=== PATIENT | female | born 1965 | race American Indian/Alaskan Native ===

== ENCOUNTER 2018-08-06 13:09 | Day surgery (SDC) | payer MEDICAID, SELFPAY ==
[2018-08-06] VITALS (14 sets, daily range): BP systolic 108–127; BP diastolic 57–85; PULSE 67–97; RESP 10–18; TEMP 36.3–37.1; O2SAT 93–99; BMI 20.6
--- NOTE | 2018-08-06 | PATH_ITS ---
[facility] Accession Number: [id number] . 01 Material submitted: . UTERUS AND CERVIX . 02 Diagnosis: Uterus and Cervix, Total Vaginal Hysterctomy (Weight 29 grams): Cervix with focally parakeratotic squamous mucosa, consistent with clinical indication of prolapse. Inflamed endocervix, negative for glandular dysplasia and malignancy. Weakly proliferative endometrium; negative for glandular hyperplasia, cytologic atypia, and malignancy. Myometrium with no diagnostic abnormality. Uterine serosa with no diagnostic abnormality. [facility]/08/09/2018 . 02 Electronically signed: . Windy Weaver MD, Pathologist NPI- [id number] . 01 Gross description: . The specimen is received in formalin, labeled with the patient's name, uterus and cervix, and is a 29-gram uterus and cervix without adnexa. The uterus has the following measurements: It is 6.5 cm superior to inferior, 3.2 cm from left to right, and 2.5 cm anterior to posterior. The serosa is bianchi-murcia, smooth, and does not have any adhesions on it. The ectocervix is bianchi-white, lobulated, glistening and contains a 1.2 cm in greatest dimension irregularly shaped os. The uterus is bivalved to reveal a bianchi glistening endocervical canal without the usual folds. The endometrium is lined by red-pink glistening mucosa, which averages 0.1 cm in thickness. The myometrium is bianchi-white, moderately trabeculated and averages 1.2 cm in thickness. No endomyometrial lesions are present. No cervical or endocervical lesions are present. Business Segment Manager sections are submitted as follows: A1 - anterior cervix; A2 - anterior endomyometrium; A3 - posterior cervix; A4 - posterior endomyometrium. ([id number]) /MRV . 02 Pathologist provided ICD-10: N81.4 . 02 CPT . 176982 Performed at: 01 [facility] [address] [id number] MD Julio Wilkerson MD Phone: [phone] Performed at: 02 [facility] [address] [place], [place] [id number] MD Jennifer Sellers MD Phone: [phone]
--- NOTE | 2018-08-06 14:35 | PM.PREOP ---
Pre-operative Note Interval Note Pre-op Check: Yes History & Physical Reviewed by Physician and Yes Exam Performed Changes: No H&P completed within 30 days and has changed as indicated here:: see 07/07 out patient note
[2018-08-06] MEDS: LACTATED RINGERS 1,000 ML 100 ML IV ×2 (14:59→18:56)
[2018-08-06] MEDS: CEFAZOLIN 2 GM/100 ML FROZ.PIGGY IV (15:28)
--- NOTE | 2018-08-06 16:08 | SUR.OPER ---
Lithotomy on padded OR bed, head on pillow, arms secured on padded arm boards at <90 degrees abduction. Legs secured in padded yellow fins stirrups.
[2018-08-06] MEDS: BUPIVACAINE 0.5% W/ EPI (PF) VIAL 30 ML INJ (16:15)
[2018-08-06] MEDS: HYDROMORPHONE 2 MG INJ 0.5 MG IV ×4 (17:30→17:52)
--- NOTE | 2018-08-06 17:32 | P.OP_ITS ---
Operative Date/Time/Diagnoses Date of procedure: 08/06/18 Time of procedure: 17:29 Pre-op diagnosis: Partial uterovaginal prolapse Post-op diagnosis: same Procedure & Clinicians Procedure: Total vaginal hysterectomy, anterior and posterior repair, sacrospinous ligament fixation. 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 Closure Type: primary Specimen(s): other (Uterus) Applied: catheter and other (Vaginal packing) Estimated Blood Loss (mL): 100 Blood products transfused: none Procedure in detail: Patient was brought to the operating room where she was placed in yellowfin stirrups and prepped and draped in the usual sterile fashion. A 20 point check system was reviewed prior to the beginning of the case. Pulsatile stockings were in place and functional throughout the case. Warming was in place. 2 g of Ancef were in prior to beginning of the case. A Watson catheter was placed. A single-tooth tenaculum was placed on the posterior lip of the cervix and a colpotomy incision was made. The peritoneum was sutured to the posterior vaginal wall. The uterosacral ligaments were clamped cut and ligated with 0 Vicryl suture which was used throughout the rest the case unless otherwise indicated. Bites were taken of the cardinal ligament and cut and ligated. A scalpel was used to circumscribe the cervix and the bladder pushed superiorly. The bladder pillars were clamped cut and ligated. Keeping the bladder pushed superiorly sequential bites were taken of the cardinal and broad ligaments. Anterior colpotomy incision was made and the bladder held away from the uterus. The rest of the attachments of the uterus including the broad ligament and the utero-ovarian ligaments were clamped and ligated. The uterus was removed intact. Adequate hemostasis was noted. A dilute solution of 1% lidocaine with epinephrine was injected over this cystocele. An incision was made over the cystocele and the incision dissected laterally. A pursestring suture was used to decrease the caliber of the cystocele with 2-0 Vicryl suture. Plicating sutures were made over the cystocele. A small amount of the vaginal excessive tissue was removed with scissors. The incision was closed with 2-0 Vicryl suture. The vaginal cuff was closed with [id number] sutures of 0 Vicryl suture. Next a wedge shaped tissue was taken out of the posterior vaginal opening. The area over the rectocele was injected with a dilute solution of 1% lidocaine with epinephrine. An incision was made over the rectocele and enterocele with the scalpel. The dissection was undertaken laterally. Prolene suture with the Capio passer was placed through the uterosacral ligament on the right side and sutured to the underside of the vaginal cuff. 0 Vicryl suture was used to plicate over the rectocele. A finger was placed in the rectum to be sure there were no sutures placed through the rectal mucosa. The uterosacral sutures were tightened down and the vaginal incision was closed with 2-0 Vicryl suture. The perineal body was built up with interrupted 0 Vicryl sutures. The skin was closed with the 2-0 Vicryl suture. Vaginal packing was placed in the vagina and the Watson left in place. Counts of instruments and sponges were correct. The patient went to recovery room in good condition. Complications: none Condition: stable Disposition: observation Plan for aftercare: Removed vaginal packing and Watson an a.m. home after postvoid residual
[2018-08-06] MEDS: LORazepam 2 MG/ML SYRINGE 0.25 MG IV (17:57)
--- NOTE | 2018-08-06 18:15 | SUR.PHASEI ---
Report called to Johnny
--- NOTE | 2018-08-06 18:33 | SUR.PHASEI ---
Pt transferred to the floor. Report to Johnny. VS stable. Moderate amt of clear, pink fluid to sascha-pad. Vaginal packing in place. IV saline locked. Upper denture, glasses/case and belongings bag with patient.
--- NOTE | 2018-08-06 18:56 | PC.NURSE ---
Patient up to floor around 1830. Patient is A&OX4, denies tingling or numbness anywhere, RA at 95%, denies nausea, SOB, or dizziness. Heart rate is regular, lung sounds are clear, bowel tones hypoactive. Watson is draining to gravity, urine yellow and clear. Patient is sitting up and eating solid foods without nausea. IVF infusing as ordered. Patient verbalizes compliance with use of call light. BA active. Will continue to monitor.
[2018-08-06] MEDS: KETOROLAC 30 MG/ML VIAL IV (19:48)
[2018-08-06] MEDS: GABAPENTIN 100 MG CAPSULE PO (20:29)
[2018-08-06] MEDS: DOCUSATE 250 MG CAPSULE PO (20:29)
[2018-08-06] MEDS: NICOTINE 7 MG PATCH TOP (22:16)
[2018-08-06] MEDS: OXYCODONE/ACETAMINOPHEN 5/325 TABLET 2 TAB PO (22:18)
--- NOTE | 2018-08-07 00:27 | PC.NURSE ---
assistant shift supervisor 0000: Assumed care of pt with safe hand off. Safety checks done. Pt a/ox4. Reports 5/10 pain in lower abdomen. This is tolerable at the time. Informed pt of next pain medication time. Taylor pad is c/d/i, recently replaced.
[2018-08-07 04:30] VITALS: BP 114/66; PULSE 95; RESP 17; TEMP 36.8; O2SAT 95
[2018-08-07] MEDS: KETOROLAC 30 MG/ML VIAL IV (04:38)
[2018-08-07 05:57] LABS: Add Manual Diff / Slide Review NO; Basophils Percent Auto 0.3 % (0-2); Hematocrit 39.4 % (36-46); Hemoglobin 13.2 g/dL (12.0-16.0); Mean Corpuscular HGB Conc 33.4 % (30-36); Mean Corpuscular Hemoglobin 30.1 PG (26-34); Monocytes Percent Auto 5.1 % (3-14); Neutrophils Absolute Auto 15400 /uL (1500-7000); Neutrophils Percent Auto 86.6 % (50-75); Platelet Count 260 X10^3/uL (150-400); Red Blood Cell Count 4.38 X10^6/uL (4.0-5.2); Red Cell Distribution Width 12.6 % (11.6-14.8); White Blood Cell Count 17.9 X10^3/uL (4.5-11.0)
[2018-08-07] MEDS: CALCIUM CARBONATE 500 MG TAB PO (06:26)
[2018-08-07] MEDS: OXYCODONE/ACETAMINOPHEN 5/325 TABLET 2 TAB PO ×2 (07:53→12:24)
[2018-08-07 08:00] VITALS: BP 111/69; PULSE 107; RESP 18; TEMP 36.6; O2SAT 93
--- NOTE | 2018-08-07 08:14 | PC.NURSE ---
Upon bedside shift report this morning at approx. 0715, pt was found to be crying and had c/o sub sternal chest pain 9/10 with nausea. She denied diaphoresis or pain radiating to left arm, neck or jaw. Pt reported further that the pain felt like a burning sensation. She had been previously medicated with one tablet of tums. Call was placed and message left with Dr. King. STAT EKG ordered with pts hx of current smoking. Pt was medicated with 2 tablets of Percocet after EKG complete. She vomited a short time after. Message left with [facility] answering service for Dr. King.
--- NOTE | 2018-08-07 08:38 | PC.NURSE ---
Order recieved from Dr. King for PPI to treat heartburn to relieve this patients discomfort at 08
[2018-08-07] MEDS: PANTOPRAZOLE 40 MG VIAL IV (09:48)
--- NOTE | 2018-08-07 10:02 | PM.DS.1 ---
History of Present Illness Date Patient Seen: 08/07/18 Time Patient Seen: 10:03 Chief complaint: *OPB* [id number] Narrative: Patient with partial uterovaginal prolapse who underwent a total vaginal hysterectomy anterior and posterior repair with sacrospinous ligament fixation. Discharge Providers Primary care physician: Kike Horton MD Discharge provider: Suzi Lopez MD Discharge Date: 08/07/18 Summary Discharge Diagnosis: Partial uterovaginal prolapse Hospital Course: Patient underwent a total vaginal hysterectomy with anterior and posterior repair and sacrospinous ligament fixation for partial uterovaginal prolapse. Patient had an episode of severe chest pain that appears to have been from acid reflux otherwise she is doing well. She is tolerating a regular diet and urinated a post removal of Watson catheter. She is ambulatory. A patient's abdomen is soft with some appropriate tenderness. She has mild bleeding vaginally. Extremities without edema nontender. Status at Discharge Functional status at discharge: independent ambulation Overall status at discharge: patient is progressing back to baseline Time Spent with Patient Less than 30 minutes Exam Vital Signs (past 8 hours): - 08/07/18 04:30 Temperature 98.2 F Pulse Rate 95 H Respiratory Rate 17 Blood Pressure 114/66 Pulse Oximetry 95 Oxygen Delivery Method Room Air Oxygen Flow Rate 0 Objective Labs Result Diagrams: 08/07/18 05:45 Labs: Laboratory Results - last 24 hr 08/07/18 05:45 WBC 17.9 H RBC 4.38 Hgb 13.2 Hct 39.4 MCV 90.0 MCH 30.1 MCHC 33.4 RDW 12.6 Plt Count 260 Neut % (Auto) 86.6 H Lymph % (Auto) 8.0 L Bleckley % (Auto) 5.1 Eos % (Auto) 0.0 L Baso % (Auto) 0.3 Neut # (Auto) 41085 H Discharge Plan Discharge Plan Patient Disposition: Home Discharge Med Rec/Prescriptions Prescriptions: New oxycodone-acetaminophen 5-325 mg Tablet 2 tab PO Q4HR PRN (Reason: Pain, Severe (7-10)) Qty: 40 RF: 0 docusate sodium 250 mg Capsule 250 mg PO BID Qty: 20 RF: 0 omeprazole 40 mg capsule,delayed release(DR/EC) 40 mg PO DAILY Qty: 14 RF: 0 Continue gabapentin 100 MG capsule 100 mg PO QDAY Qty: 0 RF: 0 sumatriptan succinate 3 mg/0.5 mL pen injector 3 mg SUBCUT ONCE RF: 0 Discontinued hydrocodone-acetaminophen 5-325 mg tablet 1 tab PO Q6H PRN (Reason: Back Pain) RF: 0 Follow up/Referrals: Suzi Lopez MD [Physician] - 2 Weeks Kike Horton MD [Primary Care Provider] - Discharge Orders: Discharge (Order); Ordered 08/07/18 Ordered By: Suzi Lopez Provider Discharge Instructions Diet: Regular Activity: Nothing in vagina for 4 weeks do not lift over 20 lb Skin/Wound/Dressing Care Report to your healthcare provider any signs of infection, such as:: chills, fever and increased pain Visit Report/Discharge Packet Stand Alone Forms: Surgery Discharge Discharge Data Primary Care Provider: Kike Horton Attending Provider: Suzi Lopez
--- NOTE | 2018-08-07 10:05 | P.DS_ITS ---
History of Present Illness Date Patient Seen: 08/07/18 Time Patient Seen: 10:03 Chief complaint: *OPB* [id number] Narrative: Patient with partial uterovaginal prolapse who underwent a total vaginal hysterectomy anterior and posterior repair with sacrospinous ligament fixation. Discharge Providers Primary care physician: Kike Horton MD Discharge provider: Suzi Lopez MD Discharge Date: 08/07/18 Summary Discharge Diagnosis: Partial uterovaginal prolapse Hospital Course: Patient underwent a total vaginal hysterectomy with anterior and posterior repair and sacrospinous ligament fixation for partial uterovaginal prolapse. Patient had an episode of severe chest pain that appears to have been from acid reflux otherwise she is doing well. She is tolerating a regular diet and urinated a post removal of Watson catheter. She is ambulatory. A patient's abdomen is soft with some appropriate tenderness. She has mild bleeding vaginally. Extremities without edema nontender. Status at Discharge Functional status at discharge: independent ambulation Overall status at discharge: patient is progressing back to baseline Time Spent with Patient Less than 30 minutes Exam Vital Signs (past 8 hours): - 08/07/18 04:30 Temperature 98.2 F Pulse Rate 95 H Respiratory Rate 17 Blood Pressure 114/66 Pulse Oximetry 95 Oxygen Delivery Method Room Air Oxygen Flow Rate 0 Objective Labs Result Diagrams: 08/07/18 05:45 Labs: Laboratory Results - last 24 hr 08/07/18 05:45 WBC 17.9 H RBC 4.38 Hgb 13.2 Hct 39.4 MCV 90.0 MCH 30.1 MCHC 33.4 RDW 12.6 Plt Count 260 Neut % (Auto) 86.6 H Lymph % (Auto) 8.0 L Rains % (Auto) 5.1 Eos % (Auto) 0.0 L Baso % (Auto) 0.3 Neut # (Auto) 53894 H Discharge Plan Discharge Plan Patient Disposition: Home Discharge Med Rec/Prescriptions Prescriptions: New oxycodone-acetaminophen 5-325 mg Tablet 2 tab PO Q4HR PRN (Reason: Pain, Severe (7-10)) Qty: 40 RF: 0 docusate sodium 250 mg Capsule 250 mg PO BID Qty: 20 RF: 0 omeprazole 40 mg capsule,delayed release(DR/EC) 40 mg PO DAILY Qty: 14 RF: 0 Continue gabapentin 100 MG capsule 100 mg PO QDAY Qty: 0 RF: 0 sumatriptan succinate 3 mg/0.5 mL pen injector 3 mg SUBCUT ONCE RF: 0 Discontinued hydrocodone-acetaminophen 5-325 mg tablet 1 tab PO Q6H PRN (Reason: Back Pain) RF: 0 Follow up/Referrals: Suzi Lopez MD [Physician] - 2 Weeks Kike Horton MD [Primary Care Provider] - Discharge Orders: Discharge (Order); Ordered 08/07/18 Ordered By: Suzi Lopez Provider Discharge Instructions Diet: Regular Activity: Nothing in vagina for 4 weeks do not lift over 20 lb Skin/Wound/Dressing Care Report to your healthcare provider any signs of infection, such as:: chills, fever and increased pain Visit Report/Discharge Packet Stand Alone Forms: Surgery Discharge Discharge Data Primary Care Provider: Kike Horton Attending Provider: Suzi Lopez
--- NOTE | 2018-08-07 11:32 | CM.DANOTE ---
Patient is a 53 year old female who was admitted OUTPT with Bed on 08/06/18 for Total Hysterectomy. Pt has RONIT for insurance and her PCP is Dr. Kike Horton. EMR was reviewed. Per MD, pt tolerated procedure well and ambulating independently and able to void without castro and medically stable to d/c home today with no identified barriers to discharge. Pt resides at home with family in [place] and is Independent with ADL's at baseline. Family available to assist if needed. Plan: Patient to d/c home today likely via family POV and no SW needs at this time. VALERIA Marcial Discharge Planning/Care Management CM Discharge Assessment Start: 08/07/18 11:30 Freq: Status: Active Protocol: Document 08/07/18 11:30 BF (Rec: 08/07/18 11:32 BF [id number]) Discharge Planning Assessment Assigned Musical String Maker VALERIA Merritt Advance Directives? No History Provided By Patient Medical Record Has Patient been admitted in last 30 No days? Prior Living Arrangements House Household Members family Type of transporation used prior to Drives own vehicle admit Comment Lives at home with family and is Independent at baseline with ADL's Independent with ADL's Yes Is patient alert and oriented? Yes Caregiver for Another Yes: young teenager at home, elderly mother Barriers to Discharge No Discharge Plan Home Transportation Arrangement Family likely to provide transport at d/c Referrals Initiated None needed Review Status In Process Please Provide Date Initial DC 08/07/18 Assessment Was Performed Next Review Type Continued Stay Review Pre-Anesthesia Assessment Start: 07/14/18 11:09 Freq: Status: Active Protocol: Document 07/14/18 11:09 INDY (Rec: 07/14/18 11:15 INDY [id number]) Pre-Anesthesia Assessment Patient Information Reviewed Via Chart Review Primary Care Provider Anuj Horton Seen Specialist in Last 12 Months Yes Specialist Seen Cae Engineer Anesthesia Review Requested No Activities Aide No Smoking Status Current every day smoker Substance Use Type opiates Comment Chronic use Musculoskeletal Symptoms Back Pain Advance Directives? No
[2018-08-07] MEDS: DOCUSATE 250 MG CAPSULE PO (12:10)
== END 2018-08-07 12:30 | disposition home or self-care (01) ==
LOC: OR 13:12 → AC 13:12
PROVIDERS: PCP Family Medicine; Visit Provider Specialist
PROC: (CPT 58260; principal; 2018-08-06 14:30)
PROC: (CPT 58260; 2018-08-06 14:30)
DX: N81.2 Incomplete uterovaginal prolapse (principal); F17.210 Nicotine dependence, cigarettes, uncomplicated; A63.0 Anogenital (venereal) warts
CPT/HCPCS: 58260; 57260; 36415; 85025; 88305; 93005; C9113; J0690; J1100; J1170; J1885; J2060; J2405; J2704; J3010

== ENCOUNTER 2018-11-23 19:12 | Emergency (ER) | payer MEDICAID, SELFPAY ==
[2018-08-06 18:40] VITALS: BMI 20.6
[2018-11-23 19:14] VITALS: BP 146/103; PULSE 135; RESP 24; TEMP 37.1; O2SAT 97
--- NOTE | 2018-11-23 19:21 | ED_ITS ---
HPI - Headache General Chief Complaint: Headache Stated Complaint: MIGRAINE Time Seen by Provider: 11/23/18 19:21 Source: patient Mode of arrival: ambulatory Limitations: no limitations History of Present Illness HPI Narrative: The patient is migraine headaches. She had onset of left frontal headache yesterday with mild photophobia, no scotomata she also has neck pain, and pain with hip motion. she has no focal numbness or weakness. She has nausea with vomiting x2 since yesterday. She has no associated abdominal pain. She has no diarrhea. She has no recent illness. She has had no fever, or chills. she has no URI symptoms. She has no chest pain, cough or congestion. She has no urinary complaints. she takes gabapentin daily. She has as needed oxycodone and sumatriptan. The headache persists despite the utilization of the list of medications. Related Data Home Medications Medication Instructions Recorded Confirmed gabapentin 100 mg PO QDAY #0 08/04/16 09/06/18 sumatriptan 3 mg/0.5 mL 3 mg SUBCUT ONCE 05/25/18 09/06/18 subcutaneous pen injector Previous Rx's Medication Instructions Recorded docusate sodium 250 mg PO BID #20 cap 08/07/18 omeprazole 40 mg PO DAILY #14 cap 08/07/18 oxycodone-acetaminophen 2 tab PO Q4HR PRN #40 tab 08/07/18 Allergies Allergy/AdvReac Type Severity Reaction Status Date / Time No Known Drug Allergies Allergy Verified 09/06/18 10:49 Review of Systems Review of Systems ROS Unobtainable: All systems reviewed & are unremarkable except as noted in HPI and below Constitutional Denies chills, Denies fever(s), Reports headache(s), Denies lethargy and Denies weakness Eyes Denies diplopia, Denies loss of vision, Denies eye pain, Denies seeing flashes and Reports photophobia ENT Ears, Nose, Mouth, and Throat: Reports as per HPI, Denies dizziness, Reports headache(s), Reports neck pain, Denies sinus pain and Denies sore throat Cardiovascular Denies chest pain, Denies syncope, Denies irregular heart rhythm, Denies lightheadedness, Denies palpitations, Denies dyspnea and Denies dyspnea on exertion Respiratory Denies cough, Denies dyspnea, Denies dyspnea on exertion and Denies wheezing Gastrointestinal Gastrointestinal: Denies abdominal pain, Denies change in bowel habits, Denies diarrhea, Reports nausea and Reports vomiting Genitourinary Denies dysuria Musculoskeletal Denies back pain and Reports neck pain Integumentary/Breasts Denies rash Neurologic Denies confusion, Denies dizziness, Denies syncope, Reports headache(s), Denies loss of vision and Denies weakness Psychiatric Denies confusion Endocrine Denies palpitations Allergic/Immunologic Denies wheezing PFSH Medical History ASCUS with positive high risk HPV (Acute) Chronic back pain (Acute) Chronic narcotic use (Acute) Cystocele and rectocele with incomplete uterovaginal prolapse (Acute) History of migraine headaches (Acute) Postmenopausal (Acute) Surgical History History of colonoscopy (Acute) History of total vaginal hysterectomy (TVH) (Resolved ~08/06/18) Social History household members: family Smoking Status: Current every day smoker Social History household members: family Smoking Status: Current every day smoker Exam Initial Vital Signs Initial Vital Signs: Vital Signs Temperature 98.8 F 11/23/18 19:14 Pulse Rate 135 H 11/23/18 19:14 Respiratory Rate 24 11/23/18 19:14 Blood Pressure 146/103 H 11/23/18 19:14 Pulse Oximetry 97 11/23/18 19:14 Const General: cooperative and well developed Nutritional Appearance: well nourished Orientation: alert, awake, oriented x3 and not confused [facility] Head: normocephalic and atraumatic Nose: external nose normal Face and sinus: sinuses nontender and face symmetric Mouth: oral mucosae normal and moist mucous membranes Teeth and gingiva: dentition normal Throat: tonsils normal and uvula midline Eyes General: appearance normal, both eyes and all related structures Eyelids: eyelids normal Conjunctivae: conjunctivae normal Sclera: sclerae normal Pupils: PERRL EOM: EOM intact bilaterally Neck Neck: normal visual inspection, trachea midline, No lymphadenopathy and No JVD Resp Effort & Inspection: normal respiratory effort and able to speak in complete se ntences Auscultation: clear to auscultation bilaterally, no rales, no rhonchi and no wheezes Cardio Rate: regular rate Rhythm: regular rhythm Heart Sounds: no click, no gallops, no murmurs and no rubs Pulses: normal peripheral pulses GI Inspection: non-distended Palpation: soft, no hepatosplenomegaly, No guarding and No tender Auscultation: normal bowel sounds Back/Spine/Pelvis Back: No CVA tenderness Cervical Spine: cervical ROM normal Thoracic/Lumbar Spine: thoracic and lumbar spine normal to inspection Skin General: no rashes or lesions noted, No jaundice and No petechiae Neuro General: alert, oriented x3, gait normal and no focal motor deficits Speech: speech normal Sensory Exam: no sensory deficits noted Course Course Narrative: Her headache has resolved with the medications given. Orders Ordered: Discontinued Medications Diphenhydramine HCl (Benadryl) 50 mg IV NOW ONE Stop: 11/23/18 19:30 Last Admin: 11/23/18 19:36 Dose: 50 mg Sodium Chloride (Normal Saline 0.9%) 1,000 mls @ 1,000 mls/hr IV BOLUS ONE Stop: 11/23/18 20:27 Last Infusion: 11/23/18 20:39 Dose: 1,000 mls/hr Admin: 11/23/18 19:36 Dose: 1,000 mls/hr Ketorolac Tromethamine (Toradol) 30 mg IV NOW ONE Stop: 11/23/18 19:30 Last Admin: 11/23/18 19:36 Dose: 30 mg Metoclopramide HCl (Reglan) 10 mg IV NOW ONE Stop: 11/23/18 19:30 Last Admin: 11/23/18 19:35 Dose: 10 mg Vital Signs - 8 hr 11/23/18 19:14 11/23/18 19:48 11/23/18 20:57 Temperature 98.8 F 98.8 F Pulse Rate 135 H 135 H 78 Respiratory Rate 24 24 15 Blood Pressure 146/103 H 146/103 H Blood Pressure [Left Arm] 108/75 Pulse Oximetry 97 97 97 Discharge Plan Departure Patient Disposition: Home Clinical Impression: Migraine Qualifiers: Migraine type: unspecified Status migrainosus presence: with status migrainosus Intractability: not intractable Qualified Code(s): G43.901 - Migraine, unspecified, not intractable, with status migrainosus Discharge Date/Time: 11/23/18 21:01 Interventions: ED Discharge Assessment Last Done: 11/23/18 21:01 Instructions: DI for Migraine Activity Restrictions/Additional Instructions: Continue using your current medications as previously directed. Follow up with her doctor if you have frequent versions of these headaches. Return to ER as needed. Prescriptions: No Action gabapentin 100 MG capsule 100 mg PO QDAY Qty: 0 RF: 0 sumatriptan succinate 3 mg/0.5 mL pen injector 3 mg SUBCUT ONCE RF: 0 oxycodone-acetaminophen 5-325 mg Tablet 2 tab PO Q4HR PRN (Reason: Pain, Severe (7-10)) Qty: 40 RF: 0 docusate sodium 250 mg Capsule 250 mg PO BID Qty: 20 RF: 0 omeprazole 40 mg capsule,delayed release(DR/EC) 40 mg PO DAILY Qty: 14 RF: 0 Referrals: Kike Horton MD [Primary Care Provider] -
[2018-11-23] MEDS: METOCLOPRAMIDE 10 MG/2 ML INJ IV (19:35)
[2018-11-23] MEDS: diphenhydrAMINE 50 MG/ML VIAL IV (19:36)
[2018-11-23] MEDS: KETOROLAC 60 MG/2 ML VIAL 30 MG IV (19:36)
[2018-11-23] MEDS: SODIUM CHLORIDE 0.9% 1,000 ML 1000 ML IV (19:36)
[2018-11-23 19:48] VITALS: BP 146/103; PULSE 135; RESP 24; TEMP 37.1; O2SAT 97
[2018-11-23 20:57] VITALS: BP 108/75; PULSE 78; RESP 15; O2SAT 97
== END 2018-11-23 21:01 | disposition home or self-care (01) ==
PROVIDERS: Emergency Provider Emergency Medicine; PCP Family Medicine
DX: G43.901 Migraine, unspecified, not intractable, with status migrainosus (principal); H53.149 Visual discomfort, unspecified; R11.2 Nausea with vomiting, unspecified; M54.2 Cervicalgia
CPT/HCPCS: 36591; 96361; 96374; 96375; 99283; 99284; J1200; J1885; J2765

== ENCOUNTER 2019-06-24 11:53 | Emergency (ER) | payer MEDICAID, SELFPAY ==
[2018-08-06 18:40] VITALS: BMI 20.6
[2019-06-24 12:11] VITALS: BP 117/65; PULSE 74; RESP 18; TEMP 36.7; O2SAT 98
[2019-06-24] MEDS: TET,DIPH,PERTUSS(ACELL),VAC/PF 0.5 ML SYRINGE IM (12:24)
--- NOTE | 2019-06-24 12:49 | ED_ITS ---
HPI - Skin/Abscess/Foreign Bdy <AGUSTINA Dhaliwal - Last Filed: 06/24/19 15:52> General Chief complaint: Skin/Abscess/Foreign Body Stated complaint: cut the tip of her thumb off Time Seen by Provider: 06/24/19 12:18 Source: patient Mode of arrival: Ambulatory Limitations: no limitations History of Present Illness HPI narrative: The patient is a 54 year female nonsmoker who presents stating that she cut off the tip of her left thumb. She states she was cutting potatoes with a mandolin pealer. She does not or last tetanus was. She states she has full range of motion, is able to flex and extend her thumb. She states that she cannot stop the bleeding. Does not take any blood thinners. Related Data Home Medications Medication Instructions Recorded Confirmed gabapentin 100 mg PO QDAY #0 08/04/16 09/06/18 sumatriptan succinate 3 mg/0.5 mL 3 mg SUBCUT ONCE 05/25/18 09/06/18 subcutaneous pen injector Previous Rx's Medication Instructions Recorded docusate sodium 250 mg PO BID #20 cap 08/07/18 omeprazole 40 mg PO DAILY #14 cap 08/07/18 oxycodone-acetaminophen 2 tab PO Q4HR PRN #40 tab 08/07/18 Allergies Allergy/AdvReac Type Severity Reaction Status Date / Time No Known Drug Allergies Allergy Verified 09/06/18 10:49 Review of Systems <AGUSTINA Dhaliwal - Last Filed: 06/24/19 15:52> Review of Systems Narrative: GENERAL: Denies chills, fatigue, malaise, fever, sweats. HEENT: Denies sinus pain, ear pain, sore throat, difficulty swallowing, dizziness. RESPIRATORY: Denies dyspnea, cough, wheezing, hemoptysis, sputum. CARDIOVASCULAR: Denies chest pain, palpitations, orthopnea, edema, GASTROINTESTINAL: Denies nausea, vomiting, abdominal pain, diarrhea, constipation, melena. : Denies dysuria, frequency, incontinence, hematuria, urinary retention. MUSCULOSKELETAL: See HPI SKIN: See HPI NEUROLOGIC: Denies weakness, headache, numbness, change in speech, confusion, seizures, incoordination. PSYCHIATRIC: No concerning psychosocial issues. 12 point review of systems is negative except for those stated above Patient History <AGUSTINA Dhaliwal - Last Filed: 06/24/19 15:52> Medical History ASCUS with positive high risk HPV (Acute) Chronic back pain (Acute) Chronic narcotic use (Acute) Cystocele and rectocele with incomplete uterovaginal prolapse (Acute) History of migraine headaches (Acute) Postmenopausal (Acute) Surgical History History of colonoscopy (Acute) History of total vaginal hysterectomy (TVH) (Resolved ~08/06/18) Social History household members: family Smoking Status: Current some day smoker alcohol intake frequency: 0-2 drinks per day Substance Use Type: does not use and opiates Exam <AZUL Dhaliwal - Last Filed: 06/24/19 15:52> Narrative Exam Narrative: GENERAL: This is a well-nourished, well-developed patient, appears anxious HEAD: Atraumatic. Normocephalic. No temporal or scalp tenderness. EYES: Pupils equal round and reactive. Extraocular motions intact. No scleral icterus. No injection or drainage. ENT: Nose without bleeding, purulent drainage or septal hematoma. Throat without erythema, tonsillar hypertrophy or exudate. Uvula midline. Airway patent. NECK: Trachea midline. No JVD or lymphadenopathy. Supple, nontender, no meningeal signs. CARDIOVASCULAR: Regular rate and rhythm RESPIRATORY: No cough. No increased respiratory effort. No accessory muscle use. EXTREMITIES: Patient is able to flex and extend left 1st digit against resistance. See skin exam. NEURO: AOx3. SKIN:2 x 1 cm avulsion laceration noted to tip of left 1st digit, oozing blood. No obvious muscle or tendon involvement. Does involve the tip of the nail. No nail bed involvement. Initial Vital Signs Initial Vital Signs: Vital Signs Temperature 98.0 F 06/24/19 12:11 Pulse Rate 74 06/24/19 12:11 Respiratory Rate 18 06/24/19 12:11 Blood Pressure 117/65 06/24/19 12:11 Pulse Oximetry 98 06/24/19 12:11 <Harjinder Hebert DO - Last Filed: 06/25/19 09:21> Initial Vital Signs Initial Vital Signs: Vital Signs Temperature 98.0 F 06/24/19 12:11 Pulse Rate 74 06/24/19 12:11 Respiratory Rate 18 06/24/19 12:11 Blood Pressure 117/65 06/24/19 12:11 Pulse Oximetry 98 06/24/19 12:11 Course <AZUL Dhaliwal - Last Filed: 06/24/19 15:52> Orders Ordered: Discontinued Medications Diphtheria/Tetanus/Acell Pertussis (Adacel) 0.5 ml IM .ONCE ONE Stop: 06/24/19 12:18 Last Admin: 06/24/19 12:24 Dose: 0.5 ml Documented by: JOSE GUADALUPE Vital Signs Vital signs: Vital Signs - 8 hr 06/24/19 12:11 06/24/19 12:59 Temperature 98.0 F Pulse Rate 74 80 Respiratory Rate 18 16 Blood Pressure 117/65 122/78 Pulse Oximetry 98 99 <Harjinder Hebert DO - Last Filed: 06/25/19 09:21> Orders Ordered: Discontinued Medications Diphtheria/Tetanus/Acell Pertussis (Adacel) 0.5 ml IM .ONCE ONE Stop: 06/24/19 12:18 Last Admin: 06/24/19 12:24 Dose: 0.5 ml Documented by: JOSE GUADALUPE Vital Signs Vital signs: Vital Signs - 8 hr 06/24/19 12:11 06/24/19 12:59 Temperature 98.0 F Pulse Rate 74 80 Respiratory Rate 18 16 Blood Pressure 117/65 122/78 Pulse Oximetry 98 99 MDM - Skin/Abscess/Foreign Bdy <AZUL Dhaliwal - Last Filed: 06/24/19 15:52> MDM Narrative Medical decision making narrative: The patient is a 54-year-old female presents with the avulsion laceration to the tip of her finger. She does not know the date of her last tetanus, so her tetanus was updated. I discussed the pros and cons of an x-ray, to evaluate for possible open fracture. The patient declined an x-ray at this time, stating it is not necessary. Her wound was dressed by nursing with Surgicel and hemostasis was achieved. I discussed at length monitoring for signs and symptoms of infection such as redness pus and swelling. Encouraged her to follow up with primary care provider in a few days for re- evaluation. Patient has no questions or concerns upon discharge and states understanding of return precautions of any acute concerns as well as follow-up care. Patient did decline x-ray during stay. No questions or concerns upon discharge. Discharge Plan Departure Patient Disposition: Home Clinical Impression: Avulsion of finger Qualifiers: Encounter type: initial encounter Qualified Code(s): S61.209A - Unspecified open wound of unspecified finger without damage to nail, initial encounter Discharge Date/Time: 06/24/19 13:00 Instructions: DI for Avulsion Laceration (Not Requiring Sutures) Activity Restrictions/Additional Instructions: Today we updated your tetanus, and dressed your wound. We did not get an x-ray, as you are not concerned about a fracture. Please keep this in mind if you are concerned in the future. Please monitor for signs and symptoms of infection such as pus, extending redness and fever. Please follow up with primary care provider in a few days for an evaluation. Please come back to emergency department for any acute concerns. Prescriptions: No Action gabapentin 100 MG capsule 100 mg PO QDAY Qty: 0 RF: 0 sumatriptan succinate 3 mg/0.5 mL pen injector 3 mg SUBCUT ONCE RF: 0 oxycodone-acetaminophen 5-325 mg Tablet 2 tab PO Q4HR PRN (Reason: Pain, Severe (7-10)) Qty: 40 RF: 0 docusate sodium 250 mg Capsule 250 mg PO BID Qty: 20 RF: 0 omeprazole 40 mg capsule,delayed release(DR/EC) 40 mg PO DAILY Qty: 14 RF: 0 Referrals: Kike Horton MD [Primary Care Provider] -
[2019-06-24 12:59] VITALS: BP 122/78; PULSE 80; RESP 16; O2SAT 99
== END 2019-06-24 13:00 | disposition home or self-care (01) ==
PROVIDERS: Emergency Provider Nurse Practitioner Family; PCP Family Medicine
DX: S61.209A Unspecified open wound of unspecified finger without damage to nail, initial encounter (principal); W26.8XXA Contact with other sharp object(s), not elsewhere classified, initial encounter
CPT/HCPCS: 90471; 99282; 90715

== ENCOUNTER 2019-07-17 10:35 | Emergency (ER) | payer MEDICAID, SELFPAY ==
[2018-08-06 18:40] VITALS: BMI 20.6
--- NOTE | 2019-07-17 10:55 | DI.RAD.S_ITS ---
PROCEDURE: XR FOOT LT MIN 3V INDICATIONS: possible broken toe TECHNIQUE: 3 views of the foot were acquired. COMPARISON: [facility], , FOOT 3V LEFT, 08/04/2016, 20:25. FINDINGS: Bones: No displaced fractures or dislocations. No suspicious bony lesions. Soft tissues: No tibiotalar joint effusion. Achilles tendon appears normal. IMPRESSION: 1. No displaced fracture or dislocation. If clinical concern persists for a nondisplaced fracture, recommend a repeat study in 7-10 days. Dictated by: Julio Olivarez M.D. on 07/17/2019 at 10:13 Approved by: Julio Olivarez M.D. on 07/17/2019 at 10:20
--- NOTE | 2019-07-17 15:39 | ED_ITS ---
HPI - Extremity Injury (Lower) <DAVID Dhaliwal-BC - Last Filed: 07/17/19 15:45> General Chief Complaint: Extremity Injury, Lower Stated Complaint: states broke 2 toes Time Seen by Provider: 07/17/19 11:29 Source: patient Mode of arrival: Ambulatory Limitations: no limitations History of Present Illness HPI Narrative: The patient is a 54-year-old female current smoker with history of left toe fracture who presents with a chief complain suspect above fractures. She states that she got her foot stuck in a store tonight yesterday common pulled out. She states that after that she worked on her feet for the past 14 hours. She has not applied ice or taken any medications as needed. She is concerned as she has a history of toe fractures in her left 2nd and 3rd toes when she dropped something on it several years ago. She states she is having trouble wiggling her toes because of the swelling Related Data Home Medications Medication Instructions Recorded Confirmed gabapentin 100 mg PO QDAY #0 08/04/16 09/06/18 sumatriptan succinate 3 mg/0.5 mL 3 mg SUBCUT ONCE 05/25/18 09/06/18 subcutaneous pen injector Previous Rx's Medication Instructions Recorded docusate sodium 250 mg PO BID #20 cap 08/07/18 omeprazole 40 mg PO DAILY #14 cap 08/07/18 oxycodone-acetaminophen 2 tab PO Q4HR PRN #40 tab 08/07/18 Allergies Allergy/AdvReac Type Severity Reaction Status Date / Time No Known Drug Allergies Allergy Verified 09/06/18 10:49 Review of Systems <AZUL Dhaliwal - Last Filed: 07/17/19 15:45> Review of Systems Narrative: GENERAL: Denies chills, fatigue, malaise, fever, sweats. HEENT: Denies sinus pain, ear pain, sore throat, difficulty swallowing, dizziness. RESPIRATORY: Denies dyspnea, cough, wheezing, hemoptysis, sputum. CARDIOVASCULAR: Denies chest pain, palpitations, orthopnea, edema, GASTROINTESTINAL: Denies nausea, vomiting, abdominal pain, diarrhea, constipation, melena. : Denies dysuria, frequency, incontinence, hematuria, urinary retention. MUSCULOSKELETAL: See HPI SKIN: See HPI NEUROLOGIC: Denies weakness, headache, numbness, change in speech, confusion, seizures, incoordination. PSYCHIATRIC: No concerning psychosocial issues. 12 point review of systems is negative except for those stated above Patient History <AZUL Dhaliwal - Last Filed: 07/17/19 15:45> Medical History ASCUS with positive high risk HPV (Acute) Chronic back pain (Acute) Chronic narcotic use (Acute) Cystocele and rectocele with incomplete uterovaginal prolapse (Acute) History of migraine headaches (Acute) Postmenopausal (Acute) Surgical History History of colonoscopy (Acute) History of total vaginal hysterectomy (TVH) (Resolved ~08/06/18) Social History household members: family Smoking Status: Current some day smoker Smoking Status: Current some day smoker alcohol intake frequency: 0-2 drinks per day Substance Use Type: does not use and opiates Exam <AZUL Dhaliwal - Last Filed: 07/17/19 15:45> Narrative Exam Narrative: GENERAL: This is a well-nourished, well-developed patient, in no acute distress HEAD: Atraumatic. Normocephalic. No temporal or scalp tenderness. EYES: Pupils equal round and reactive. Extraocular motions intact. No scleral icterus. No injection or drainage. ENT: Nose without bleeding, purulent drainage or septal hematoma. Throat without erythema, tonsillar hypertrophy or exudate. Uvula midline. Airway patent. NECK: Trachea midline. No JVD or lymphadenopathy. Supple, nontender, no meningeal signs. CARDIOVASCULAR: Regular rate and rhythm EXTREMITIES: Decreased range of motion noted left toes. Capillary refill less than 2 seconds. Positive pedal pulses left foot. General pain to palpation left 2nd and 3rd toes. BACK: Nontender without deformity or crepitance. No flank tenderness. NEURO: AOx3. SKIN: No rash or erythema on visible skin. Slight ecchymosis noted on left 2nd and 3rd toes. Course <AZUL Dhaliwal - Last Filed: 07/17/19 15:45> Orders Ordered: ED Orders 07/17/19 10:55 XR foot LT min 3V Stat <Windy Pinto MD - Last Filed: 07/17/19 20:00> Orders Ordered: ED Orders 07/17/19 10:55 XR foot LT min 3V Stat MDM - Extremity Injury (Lower) <AZUL Dhaliwal - Last Filed: 07/17/19 15:45> Imaging Data Toe x-ray: Radiologist's impression: [address] [address] XRay Report Signed Patient: Blanca Oconnell MMR#: [id number] : 1965Acct:[id number] Age/Sex: 54 / FDate of Service: 07/17/19 Loc: ED Accession Number: [id number] Procedure: XR foot LT min 3V Ordering Provider: Windy Pinto MD PROCEDURE: XR FOOT LT MIN 3V INDICATIONS: possible broken toe TECHNIQUE: 3 views of the foot were acquired. COMPARISON: [facility], , FOOT 3V LEFT, 08/04/2016, 20:25. FINDINGS: Bones: No displaced fractures or dislocations. No suspicious bony lesions. Soft tissues: No tibiotalar joint effusion. Achilles tendon appears normal. IMPRESSION: 1. No displaced fracture or dislocation. If clinical concern persists for a nondisplaced fracture, recommend a repeat study in 7-10 days. Dictated by: Julio Olivarez M.D. on 07/17/2019 at 10:13 Approved by: Julio Olivarez M.D. on 07/17/2019 at 10:20 [facility] Narrative Medical decision making narrative: The patient is a 54-year-old female presents with a chief complaint of left toe pain after it was stuck in a door yesterday. X-ray showed no acute fracture. Discussed at length rest ice compression el evation as well as [id number] medications as needed and able. Discussed the possibility of occult fracture, soft tissue injury. Encourage PCP follow-up in the next 10 days or so specially if worsening or no improvement. Patient is neurovascularly intact throughout her stay in the emergency department. Discussed come back to the ER for any acute concerns. Patient has no questions or concerns upon discharge and states understanding of return precautions as well as follow-up care. Discharge Plan Departure Patient Disposition: Home Clinical Impression: Pain in toe of left foot Discharge Date/Time: 07/17/19 11:49 Instructions: How To Perform RICE (Rest, Ice, Compress, Elevate), DI for Toe Sprain, DI for Foot Pain Activity Restrictions/Additional Instructions: As I discussed, your x-ray shows no acute fracture. This does not rule out a soft tissue injury such as a ligament or tendon injury. It is important that you follow up with primary care provider, especially if worsening or no improvement. There can be fractures that did not show up on initial x-ray. Please use rest ice compression elevation as well as [id number] medications as needed and able. Please follow-up with primary care provider the next few days. Please come back to the emergency department for any acute concerns Prescriptions: No Action gabapentin 100 MG capsule 100 mg PO QDAY Qty: 0 RF: 0 sumatriptan succinate 3 mg/0.5 mL pen injector 3 mg SUBCUT ONCE RF: 0 oxycodone-acetaminophen 5-325 mg Tablet 2 tab PO Q4HR PRN (Reason: Pain, Severe (7-10)) Qty: 40 RF: 0 docusate sodium 250 mg Capsule 250 mg PO BID Qty: 20 RF: 0 omeprazole 40 mg capsule,delayed release(DR/EC) 40 mg PO DAILY Qty: 14 RF: 0 Referrals: Kike Horton MD [Primary Care Provider] -
== END 2019-07-17 11:49 | disposition home or self-care (01) ==
PROVIDERS: Emergency Provider Nurse Practitioner Family; PCP Family Medicine
DX: M79.675 Pain in left toe(s) (principal); W22.8XXA Striking against or struck by other objects, initial encounter
CPT/HCPCS: 73630; 99281; 99283

== ENCOUNTER 2019-09-13 22:12 | Emergency (ER) | payer MEDICAID, SELFPAY ==
[2018-08-06 18:40] VITALS: BMI 20.6
[2019-09-13 22:50] VITALS: BP 123/72; PULSE 72; RESP 15; TEMP 36.1; O2SAT 97; BMI 22.8
--- NOTE | 2019-09-14 00:12 | ED.WOUNDLAC ---
HPI - Wound/Laceration General Chief Complaint: Wound/Laceration Stated Complaint: lt 4th & 5th finger cuts Time Seen by Provider: 09/14/19 00:09 Source: patient Mode of arrival: Ambulatory Limitations: no limitations History of Present Illness HPI narrative: The patient has injuries to the left 4th and 5th digits. She was doing dishes, a cup broke. She lacerated the dorsal 4th and 5th fingers of her left hand. The event happened about 9:00 p.m. the laceration on the 5th finger still bleeds if no pressure is applied. She has full range of motion of both digits. She has no obvious numbness to the fingers. There were no other injuries. She is left-hand dominant, her tetanus is up-to-date due to a prior/recent left thumb injury. Related Data Home Medications Medication Instructions Recorded Confirmed gabapentin 100 mg PO QDAY #0 08/04/16 09/06/18 sumatriptan succinate 3 mg/0.5 mL 3 mg SUBCUT ONCE 05/25/18 09/06/18 subcutaneous pen injector Previous Rx's Medication Instructions Recorded docusate sodium 250 mg PO BID #20 cap 08/07/18 omeprazole 40 mg PO DAILY #14 cap 08/07/18 oxycodone-acetaminophen 2 tab PO Q4HR PRN #40 tab 08/07/18 Allergies Allergy/AdvReac Type Severity Reaction Status Date / Time No Known Drug Allergies Allergy Verified 09/06/18 10:49 Review of Systems Constitutional Constitutional: Denies weakness Comments: No other injuries, no weakness. Musculoskeletal Musculoskeletal: Denies numbness Comments: Lacerations to the left 4th and 5th fingers. Integumentary/Breasts Skin/Breast: Denies lesions (Other than the left hand injuries) and Denies rash Neurologic Neurologic: Denies numbness and Denies weakness Patient History Medical History ASCUS with positive high risk HPV (Acute) Chronic back pain (Acute) Chronic narcotic use (Acute) Cystocele and rectocele with incomplete uterovaginal prolapse (Acute) History of migraine headaches (Acute) Postmenopausal (Acute) Surgical History History of colonoscopy (Acute) History of total vaginal hysterectomy (TVH) (Resolved ~08/06/18) Social History household members: family Smoking Status: Current some day smoker Smoking Status: Current some day smoker alcohol intake frequency: 0-2 drinks per day Substance Use Type: does not use and opiates Exam Initial Vital Signs Initial Vital Signs: Vital Signs Temperature 97.0 F L 09/13/19 22:50 Pulse Rate 72 09/13/19 22:50 Respiratory Rate 15 09/13/19 22:50 Blood Pressure 123/72 09/13/19 22:50 Pulse Oximetry 97 09/13/19 22:50 Const General: cooperative and well developed Nutritional Appearance: well nourished Skin General: no rashes or lesions noted Neuro General: alert, oriented x3 and no focal motor deficits Sensory Exam: no sensory deficits noted Extrem Other: The patient has an angulated 1 cm laceration over the dorsal left 4th finger, just distal to the PIP joint. There is no foreign body. There is no active bleeding. She has normal range of motion in that digit. She also has a 1 cm laceration over the left 5th digit, distal to the PIP joint. This wound is actively bleeding. There is no foreign body or contamination of the wound. She has normal sensation and motor function to both digits. Procedures Laceration Repair Laceration 1: Site: hand (Left 4th digit) Side (If applicable): left Size (cm): 1 Description: irregular and clean Pre-repair: wound explored and irrigated extensively Skin layer closed with: dermabond Laceration 2: Site: hand (Left 5th digit) Side (If applicable): left Description: linear and clean Pre-repair: wound explored, irrigated extensively and deep structures intact Skin layer closed with: dermabond Course Course Course Narrative: After the glue was applied, the patient had tube gauze dressings placed by her nurse. Vital Signs Vital signs: Vital Signs - 8 hr 09/13/19 22:50 Temperature 97.0 F L Pulse Rate 72 Respiratory Rate 15 Blood Pressure 123/72 Pulse Oximetry 97 Discharge Plan Departure Patient Disposition: Home Clinical Impression: Finger laceration Qualifiers: Encounter type: initial encounter Finger: ring finger Damage to nail status: without damage Foreign body presence: without foreign body Laterality: left Qualified Code(s): S61.215A - Laceration without foreign body of left ring finger without damage to nail, initial encounter Instructions: DI for Laceration Repair Prescriptions: No Action gabapentin 100 MG capsule 100 mg PO QDAY Qty: 0 RF: 0 sumatriptan succinate 3 mg/0.5 mL pen injector 3 mg SUBCUT ONCE RF: 0 oxycodone-acetaminophen 5-325 mg Tablet 2 tab PO Q4HR PRN (Reason: Pain, Severe (7-10)) Qty: 40 RF: 0 docusate sodium 250 mg Capsule 250 mg PO BID Qty: 20 RF: 0 omeprazole 40 mg capsule,delayed release(DR/EC) 40 mg PO DAILY Qty: 14 RF: 0 Referrals: Kike Horton MD [Primary Care Provider] -
[2019-09-14 00:49] VITALS: BP 121/81; PULSE 69; O2SAT 100
== END 2019-09-14 00:51 | disposition home or self-care (01) ==
PROVIDERS: Emergency Provider Emergency Medicine; PCP Family Medicine
DX: S61.215A Laceration without foreign body of left ring finger without damage to nail, initial encounter (principal); S61.217A Laceration without foreign body of left little finger without damage to nail, initial encounter; W26.8XXA Contact with other sharp object(s), not elsewhere classified, initial encounter; Y93.G1 Activity, food preparation and clean up
CPT/HCPCS: 99282

== ENCOUNTER 2019-10-13 06:56 | Emergency (ER) | payer MEDICAID, SELFPAY ==
[2018-08-06 18:40] VITALS: BMI 20.6
[2019-10-13 07:21] VITALS: BP 133/71; PULSE 85; RESP 12; TEMP 36.6; O2SAT 97
[2019-10-13 07:22] VITALS: BP 133/71; PULSE 93; RESP 12; TEMP 36.6; O2SAT 96; BMI 22.2
--- NOTE | 2019-10-13 07:26 | DI.RAD.S_ITS ---
PROCEDURE: XR TIBIA FIBULA RT 2V INDICATIONS: cat bite distal eval for FB TECHNIQUE: 2 views of the tibia and fibula were acquired. COMPARISON: None. FINDINGS: Bones: No fractures or dislocations. No suspicious bony lesions. Soft tissues: No suspicious soft tissue calcifications or masses. There is mild swelling over the distal soft tissues ventral to the distal metadiaphyseal junction of the tibia, without foreign body associated, or gas in the soft tissues. IMPRESSION: Soft tissue swelling, without foreign body or gas in the soft tissues. Dictated by: Thom Damico M.D. on 10/13/2019 at 8:08 Approved by: Thom Damico M.D. on 10/13/2019 at 8:09
--- NOTE | 2019-10-13 07:28 | ED.ANIMALBIT ---
HPI - Animal Bite General Chief Complaint: Animal Bite Stated Complaint: BIT BY A CAT Time Seen by Provider: 10/13/19 07:26 Source: patient Mode of arrival: Ambulatory Limitations: no limitations History of Present Illness HPI narrative: 54-year-old female here for evaluation to a cat bite to her left lower extremity. She states that it was a domesticated cat. 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 She is updated on her tetanus. The event occurred approximately 12 hours ago. She states that it woke her up from her sleep overnight because of the pain. Related Data Home Medications Medication Instructions Recorded Confirmed gabapentin 100 mg PO QDAY #0 08/04/16 10/13/19 sumatriptan succinate 3 mg/0.5 mL 3 mg SUBCUT ONCE 05/25/18 09/06/18 subcutaneous pen injector hydrocodone-acetaminophen 1 - 2 tab PO Q3-6H PRN 10/13/19 10/13/19 Previous Rx's Medication Instructions Recorded docusate sodium 250 mg PO BID #20 cap 08/07/18 omeprazole 40 mg PO DAILY #14 cap 08/07/18 oxycodone-acetaminophen 2 tab PO Q4HR PRN #40 tab 08/07/18 amoxicillin-pot clavulanate 1 tab PO BID 5 Days #10 tab 10/13/19 [Augmentin] Allergies Allergy/AdvReac Type Severity Reaction Status Date / Time No Known Drug Allergies Allergy Verified 10/13/19 07:28 Review of Systems Constitutional Constitutional: Denies fever(s) Integumentary/Breasts Comments: Cat bite to left lower extremity Hematologic/Lymphatic Hematologic/Lymphatic: Denies easy bleeding and Denies easy bruising Patient History Medical History ASCUS with positive high risk HPV (Acute) Chronic back pain (Acute) Chronic narcotic use (Acute) Cystocele and rectocele with incomplete uterovaginal prolapse (Acute) History of migraine headaches (Acute) Postmenopausal (Acute) Social History household members: family Smoking Status: Current some day smoker Smoking Status: Current some day smoker tobacco type: cigarettes alcohol intake frequency: holidays/special occasions only Substance Use Type: does not use and opiates Exam Initial Vital Signs Initial Vital Signs: Vital Signs Temperature 97.8 F 10/13/19 07:21 Pulse Rate 85 10/13/19 07:21 Respiratory Rate 12 10/13/19 07:21 Blood Pressure 133/71 10/13/19 07:21 Pulse Oximetry 97 10/13/19 07:21 Const General: cooperative and comfortable Skin Other: Multiple small less than 1 cm cuts to the anterior aspect of the distal 3rd of the left tibia. No active bleeding. Neuro General: alert Speech: speech normal Gait: normal gait Extrem Other: Full range of motion of left ankle and left knee Procedures Laceration Repair Laceration 1: Site: lower extremity Side (If applicable): left Size (cm): 1 Description: linear Depth: simple, single layer Local Anesthetic: lidocaine 1% Amount of anesthesia used (mL): 1 Pre-repair: irrigated extensively Skin layer closed with: nylon Size (cm): 4-0 Number of sutures: 1 Course Orders Ordered: ED Orders 10/13/19 07:26 XR tibia fibula LT 2V Stat Bacitracin (Bacitracin) 1 applic TOP NOW ONE Stop: 10/13/19 07:42 Discontinued Medications Lidocaine HCl (Xylocaine 1% (Pf)) 2 ml INJ NOW ONE Stop: 10/13/19 07:27 Vital Signs Vital signs: Vital Signs - 8 hr 10/13/19 07:21 10/13/19 07:22 Temperature 97.8 F 97.8 F Pulse Rate 85 93 H Respiratory Rate 12 12 Blood Pressure 133/71 Blood Pressure [Left Arm] 133/71 Pulse Oximetry 97 96 MDM - Animal Bite Imaging Data Extremity x-ray #1: Attestation: I personally reviewed and interpreted this imaging study as follows: My Impression: No foreign bodies noted on x-ray [facility] Narrative Medical decision making narrative: Patient is up-to-date on tetanus. No indication for rabies treatment. The 1 wound that was closed with 1 stitch was done so because it was gaping open. This was done very loosely just to approximate the edges. Will start the patient on antibiotics given the fact that this was a cat bite. Patient was given return precautions and follow-up instructions. She expressed understanding and agreement. Discharge Plan Departure Patient Disposition: Home Clinical Impression: Bite by animal Instructions: DI for Animal Bites Activity Restrictions/Additional Instructions: You can shower like normal. You can use soap and water like normal. The stitch does need to be removed in approximately 7 days. Take the antibiotics as directed. Contact your primary provider for follow-up. Return to the emergency department for any new or worsening symptoms. You can take Tylenol and/or ibuprofen for any discomfort. You can also ice the area. Your antibiotics for electronically transmitted to [email or web address]. Prescriptions: New amoxicillin-pot clavulanate [Augmentin] 875-125 mg tablet 1 tab PO BID 5 Days Qty: 10 RF: 0 No Action gabapentin 100 MG capsule 100 mg PO QDAY Qty: 0 RF: 0 sumatriptan succinate 3 mg/0.5 mL pen injector 3 mg SUBCUT ONCE RF: 0 oxycodone-acetaminophen 5-325 mg Tablet 2 tab PO Q4HR PRN (Reason: Pain, Severe (7-10)) Qty: 40 RF: 0 docusate sodium 250 mg Capsule 250 mg PO BID Qty: 20 RF: 0 omeprazole 40 mg capsule,delayed release(DR/EC) 40 mg PO DAILY Qty: 14 RF: 0 hydrocodone-acetaminophen 5-325 mg tablet 1 - 2 tab PO Q3-6H PRN (Reason: Pain (Scale Score 1-3)) RF: 0 Referrals: Kike Horton MD [Primary Care Provider] -
[2019-10-13] MEDS: LIDOCAINE 1% (PF) 2 ML INJ (07:49)
[2019-10-13] MEDS: BACITRACIN OINT 0.9 GM PCKT 1 APPLIC TOP (07:50)
[2019-10-13 08:20] VITALS: BP 128/69; PULSE 87; RESP 16; O2SAT 97
--- NOTE | 2019-10-13 08:37 | PC.NURSE ---
Lidocaine injected into wound and [address] Puente
== END 2019-10-13 08:20 | disposition home or self-care (01) ==
PROVIDERS: Emergency Provider Emergency Medicine; PCP Family Medicine
DX: S81.852A Open bite, left lower leg, initial encounter (principal); W55.01XA Bitten by cat, initial encounter
CPT/HCPCS: 12001; 73590; 99283; 99284

== ENCOUNTER → 2019-10-21 08:27 | Outpatient (CLI) | payer MEDICAID, SELFPAY ==
[2018-08-06 18:40] VITALS: BMI 20.6
== END ==
PROVIDERS: PCP Family Medicine; Referring Provider Physician Assistant; Visit Provider Family Medicine
DX: S81.802A Unspecified open wound, left lower leg, initial encounter (principal); W55.01XA Bitten by cat, initial encounter; L08.9 Local infection of the skin and subcutaneous tissue, unspecified
CPT/HCPCS: 11042; 87070; 87205; 99203; 99213